=== PATIENT | female | born 1980 | race Caucasian/White ===

== ENCOUNTER → 2021-12-26 10:19 | Outpatient (CLI) | payer OTHER, SELFPAY ==
--- NOTE | ~2021-12-26 | US_ITS ---
EXAMINATION: US transvaginal DATE: 12/26/2021 10:46 INDICATION: Abnormal uterine bleeding Comparison:No prior studies for comparison. TECHNIQUE: Multiple transabdominal and endovaginal sonographic images of the pelvis performed. FINDINGS: The uterus measures 8 x 4.7 x 4.8 cm. The endometrial complex measures 8 mm. The right ovary measures 3.8 x 1.4 x 3.6 cm and the left ovary measures 3.1 x 1.3 x 3.2 cm. There ar e small follicles in each ovary. Normal doppler signal in both ovaries. There is no free fluid in the pelvis. There are no abnormal masses seen on either side. IMPRESSION: 1. Unremarkable pelvic ultrasound. Reviewed, dictated and finalized at location B.
== END ==
PROVIDERS: PCP Family Medicine; Visit Provider Nurse Practitioner
DX: N93.9 Abnormal uterine and vaginal bleeding, unspecified (principal)
CPT/HCPCS: 76830

== ENCOUNTER 2023-10-21 08:11 | Outpatient (CLI) | payer OTHER, SELFPAY ==
--- NOTE | ~2023-10-21 | US_ITS ---
EXAMINATION: US soft tissue head and neck DATE: 10/21/2023 08:32 INDICATION: Mass behind the left ear TECHNIQUE: Multiple grayscale and Doppler ultrasound images of the region of concern posterior to the left ear were obtained. COMPARISON: None FINDINGS/IMPRESSION: No abnormal masses or fluid collections identified in the subcutaneous tissues overlying the relative ly superficial shadowing bone at the region of concern. Reviewed, dictated and finalized at location B.
== END 2023-10-21 08:12 ==
LOC: MICIMG 08:12
PROVIDERS: PCP Nurse Practitioner; Visit Provider Nurse Practitioner
DX: R22.9 Localized swelling, mass and lump, unspecified (principal)
CPT/HCPCS: 76536

== ENCOUNTER 2024-07-15 14:24 | Outpatient (CLI) | payer OTHER, SELFPAY ==
--- NOTE | ~2024-07-15 | US_ITS ---
Pelvic ultrasound. Clinical History: Abnormal uterine bleeding Technique: Realtime transvaginal scanning of the pelvis was performed. Color flow Doppler and Doppler spectral analysis were performed. Findings: The uterus is retroverted.. The endometrial stripe has a thickness of 12 mm. No focal mass is identified. The right ovary measures 3.8 x 2.3 x 1.8 cm. Right ovarian corpus luteal cyst noted. The left ovary measures 2.8 x 0.9 x 1.7 cm. No significant left ovarian or adnexal mass is seen. There is no evidence of free fluid in the cul de sac. Impression: No significant abnormality seen. Reviewed, dictated and finalized at location . [employer] Impression: No significant abnormality seen.
== END 2024-07-15 14:25 | disposition home or self-care (01) ==
PROVIDERS: PCP Nurse Practitioner; Visit Provider Nurse Practitioner
DX: N93.9 Abnormal uterine and vaginal bleeding, unspecified (principal)
CPT/HCPCS: 76830

== ENCOUNTER 2024-08-22 00:23 | Day surgery (SDC) | payer OTHER, SELFPAY ==
[2024-08-16 09:19] VITALS: BMI 23.4
--- NOTE | 2024-08-16 09:26 | PC.NURSE ---
Report to the Outpatient Waiting Room, entrance under the green pavilion located off [facility], at time _0800_ on date __08/22/24_. Planned Procedure Time: _1000_.? Time changes happen often and if your time is changed the preop area will call you the afternoon before. - You and your visitor will be asked to self-screen and do not enter if you have any COVID symptoms. Please call surgeon if you need to reschedule. - A mask is optional within the hospital at this time. Patients may have clear liquids (water, carbonated beverages, clear teas, apple juice) until 3 hours prior to surgery with a maximum of 20 ounces. - No food from midnight until time of surgery and no smoking. This includes no chewing gum, candy or mints. - Infants may have breast milk until 4 hours before surgery, infant formula 6 hours prior to surgery. - Children will be allowed to drink immediately following surgery.? If applicable, please bring a bottle or sippy cup to assist with drinking. Juice, water, soda, and popsicles are readily available.? For infants on formula, please bring formula the day of surgery.? Pacifiers are allowed. Take only the following medications with a SIP of water on the morning of surgery: ____NONE DO NOT STOP ANY OF YOUR OTHER PRESCRIPTION MEDICATIONS PRIOR TO SURGERY EXCEPT THE FOLLOWING Medications to discontinue per physician Date to take last dose Please no make-up, nail bahamian, hairspray, perfume, deodorant, or body powder the day of surgery.? No jewelry (including any body piercings) or valuables the day of surgery, leave them at home.? Please take a shower or bath the night before, or the morning of, surgery with an antibacterial soap.? Wear comfortable, loose fitting clothing.? Children are encouraged to wear pajamas. - Jewelry must be removed prior to entering the operating room.? Rings and piercings that are not removed may be cut off. - The hospital will not accept responsibility for valuables.? - Please leave all valuables, including medications, at home the day of surgery. If you are going home after surgery, a licensed truck driver instructor must drive you home.? - NO public transportation without another adult if you receive anesthesia. - We recommend that an adult stay with you for 24 hours following discharge. - We also recommend that you do not drive, make important decision, drink alcoholic beverages, or take any drugs that were not prescribed by your health care provider for at least 24 hours after your discharge time. For Pediatric surgeries, we recommend two adults accompany the child home. Follow any additional instructions given to you from your surgeon. Telephone instructions given to PATIENT__and asked if any additional questions and then verbalized understanding. Patient advised to call surgeon office or pre surgery nurse liaison [phone] if any additional questions.
[2024-08-22] MEDS: ACETAMINOPHEN 500 MG TABLET 1000 MG PO (08:20)
[2024-08-22 08:34] VITALS: BP 111/81; PULSE 84; RESP 14; TEMP 36.4; O2SAT 99
[2024-08-22 08:35] LABS: BEDSIDEPREGUCG Negative (Negative)
[2024-08-22] MEDS: LACTATED RINGERS 1,000 ML 30 ML IV CONT (08:36)
--- NOTE | 2024-08-22 08:49 | WPDHPUPDATE1 ---
History and Physical Update Update Date/Time: 08/22/24 08:49 History and Physical has been reviewed, including an updated exam of the patient. There are NO changes in the patient's condition. Risks, benefits, and alternatives have been discussed and questions answered. Patient agrees to proceed with procedure.
--- NOTE | 2024-08-22 08:49 | PM.HPGS ---
History of Present Illness History of Present Illness Consent: Risks, benefits, and alternatives have been discussed and questions answered. Patient agrees to proceed with procedure. Chief complaint: abn uterine bleeding Narrative: Angela Castro is a 44 year old female prolonged and heavy vaginal bleeding. Pelvic ultrasound was normal. It was recommended to undergo D&C hysteroscopy for further evaluation. Risks of infection, bleeding, perforation, and possible pathology are reviewed. Patient voices understanding and agrees to proceed. Review of Systems Review of Systems: not repeated day of surgery; patient states no changes in [facility] Past Medical History Medical History (Updated 08/22/24 @ 08:52 by Linda Loomis MD) Hx of hydronephrosis PSVT (paroxysmal supraventricular tachycardia) Psoriatic arthritis Psoriasis Arthropathy Surgical History Surgical History (Updated 08/22/24 @ 08:51 by Linda Loomis MD) History of hysteroscopy 2021 Hx of breast augmentation History of pyeloplasty Hx of LASIK Family History Family History Father Hypertension Family history of osteoarthritis Family history of elevated blood lipids Social History Social History Social History: Smoking status: Never smoker Second hand tobacco smoke exposure: No Alcohol intake: current Alcohol use details: RARE OCCASIONS Substance use: never Substance use type: does not use Living arrangements: with family Occupation/Education: occupation Gender identity (if verbalized by the patient): Female Sexual Orientation (if Verbalized by the Patient): Straight or Heterosexual Meds Home Medications and Allergies Home Medications ?Medication ?Instructions ?Recorded ?Confirmed ?Type No Home Medications 08/24/22 08/16/24 History Allergies Allergy/AdvReac Type Severity Reaction Status Date / Time No Known Allergies Allergy Mild Verified 08/22/24 08:12 Vital Signs Vital Signs - 24 hr 08/22/24 08:34 Temperature 97.6 F Pulse Rate 84 Respiratory Rate 14 Blood Pressure 111/81 Pulse Oximetry 99 Exam Const: General: healthy appearing and alert Orientation/consciousness: patient oriented x3 Resp: Effort & Inspection: normal respiratory effort GI: GI Palp: Yes Soft to palpation, No Tenderness to palpation present (GI) and No Palpable mass present : External Female Exam: normal external appearance Speculum Exam - Vagina: normal appearance of the vagina and normal vaginal discharge Speculum Exam - Cervix: normal appearance of the cervix Bimanual exam- vagina & uterus: uterine size normal and consistency normal Bimanual Exam- Adnexa, other: normal adnexae and No adnexal tenderness Neuro: General: patient oriented x3 Assessment and Plan Assessment and plan (1) Menorrhagia: Code(s): N92.0 - Excessive and frequent menstruation with regular cycle Status: Acute Assessment and Plan: Plan to proceed with D&C hysteroscopy
--- NOTE | 2024-08-22 09:18 | WPDANESEPPF ---
Anes - Initial Pre Proc Eval Procedure: Operation Date: 08/22/24 10:00 Proposed Procedures p Hysteroscopy, Dilation and Curettage - Linda Loomis MD Date/Time: 08/22/24 09:18 Surgeon: Linda Loomis MD Pre Op Diagnosis: abn uterine bleeding Patient Data Age: 44 Gender: F Height: 1.73 m Weight: 70.1 kg Last Vital Signs Temp 97.6 F 08/22/24 08:34 Pulse 84 08/22/24 08:34 Resp 14 08/22/24 08:34 BP 111/81 08/22/24 08:34 Pulse Ox 99 08/22/24 08:34 Allergies Allergy/AdvReac Type Severity Reaction Status Date / Time No Known Allergies Allergy Mild Verified 08/22/24 08:12 Home Medications ?Medication ?Instructions ?Recorded ?Confirmed ?Type No Home Medications 08/24/22 08/16/24 History Laboratory Tests 08/22/24 08:28 POC Urine HCG, Qual Negative (Negative) Patient hx anesthesia problems: post op nausea/vomiting Family hx anesthesia problems: none Results Review: All pre-operative results and documents have been reviewed as part of the pre-operative evaluation. [facility] Past Medical History Medical History Hx of hydronephrosis PSVT (paroxysmal supraventricular tachycardia) Psoriatic arthritis Psoriasis Arthropathy Surgical History Surgical History History of hysteroscopy 2021 Hx of breast augmentation History of pyeloplasty Hx of LASIK Family History Family History Father Hypertension Family history of osteoarthritis Family history of elevated blood lipids Social History Social History Social History: Smoking status: Never smoker Second hand tobacco smoke exposure: No Alcohol intake: current Alcohol use details: RARE OCCASIONS Substance use: never Substance use type: does not use Living arrangements: with family Occupation/Education: occupation Gender identity (if verbalized by the patient): Female Sexual Orientation (if Verbalized by the Patient): Straight or Heterosexual Anes - Eval Final PreProcedure Day of Procedure 08/22/24 09:18 Patient weight: normal Heart: regular rate and rhythm Lungs: clear to auscultation Airway: Mallampati scale class II and special considerations (Upper caps. ) Neurological: alert and oriented Last oral intake: >/= 8 hours ASA classification: II Emergent: no Anesthetic plan: proceed Anesthesia type and monitoring: general GIVS and standard monitoring Results Review: All pre-operative results and documents have been reviewed as part of the pre-operative evaluation. Hx of PSVT, occ and pt eval, elected no treatment, just avoidance of likely triggers. Pt requests scop patch for PONV. Informed Consent: The patient's anesthetic plan and its attendant risks and benefits were discussed with the patient/family/POA. Questions were solicited and answers provided to the satisfaction of the patient/family/POA.
[2024-08-22] MEDS: SCOPOLAMINE 1 MG PATCH 1 PATCH TRANSDERM (09:23)
[2024-08-22] MEDS: KETOROLAC 30 MG/ML VIAL (*BKC) IV PUSH (10:29)
--- NOTE | 2024-08-22 10:36 | W.PM.PROC2 ---
Procedure Note - Detailed Date of Procedure 08/22/24 Pre-op Diagnosis abn uterine bleeding Post-op Diagnosis Same Procedure Performed D&C hysteroscopy with resection of polyp Surgeon Linda Loomis MD Anesthesia MAC Findings Polyp at the right cornua otherwise normal-appearing endometrium. The uterus sounds to 9cm and is retroverted. Description of Procedure The patient is taken to the operating room and placed under anesthesia in the dorsal lithotomy position. She was prepped and draped in the usual sterile fashion. [place] speculum was placed in the vagina and the cervix grasped on the anterior lip with a tenaculum. The uterus is sounded to 9cm and noted to be retroverted. The hysteroscope was placed and with the above-stated findings the small Aveta resection device is placed. Under direct visualization the polyp was removed in its entirety. The hysteroscope was then removed and the sharp curette used to curette the endometrium until a good uterine cry was noted in all areas. All instruments are removed. Sponge, needle, and instrument counts are correct per the OR staff. The patient was awakened from anesthesia and taken to recovery in stable condition. Estimated Blood Loss 5 Drains No Packing No Pathology Yes (Endometrial shavings and curettings) Complications No immediate complications Condition Stable Disposition PACU
[2024-08-22 10:37] VITALS: BP 103/63; PULSE 75; RESP 16; O2SAT 98
[2024-08-22 11:05] VITALS: BP 106/68; PULSE 60; O2SAT 98
[2024-08-22 11:25] VITALS: BP 107/71; PULSE 64
[2024-08-22 11:40] VITALS: BP 109/71; PULSE 60; RESP 18
== END 2024-08-22 11:44 | disposition home or self-care (01) ==
PROVIDERS: PCP Nurse Practitioner; Visit Provider Obstetrics & Gynecology Gynecology
PROC: 0U5B8ZZ Destruction of Endometrium, Via Natural or Artificial Opening Endoscopic (ICD-10-PCS; CPT 58563; principal; 2024-08-22 10:00)
DX: N84.0 Polyp of corpus uteri (principal); I47.10 Supraventricular tachycardia, unspecified; L40.50 Arthropathic psoriasis, unspecified; Z98.890 Other specified postprocedural states; Z87.448 Personal history of other diseases of urinary system
CPT/HCPCS: 58558; 88305; A9270; J1100; J1885; J2003; J2250; J2405; J2704; J3010; J7120